=== PATIENT | male | born 1950 | race Caucasian/White ===

== ENCOUNTER 2017-04-13 06:50 | Inpatient (IN) | payer MEDICARE, MEDICAID ==
[~2017-04-13] VITALS: Ht 172.7 cm; Wt 64.4 kg
[2017-04-13] VITALS (10 sets, daily range): BP systolic 92–120; BP diastolic 46–66
[~2017-04-13 06:50] MED LIST: FURO-152; INSU10VI5; METF500T4; PROP120C2
[2017-04-13] MEDS ORDERED: ONDANSETRON HCL 4MG/2ML VIAL IV STA (07:11)
[2017-04-13 07:51] LABS: BASOPHILS % 0.4 % (0.0-2.0); EOSINOPHILS % 2.5 % (0.0-5.0); HEMATOCRIT. 44.2 % (42.0-52.0); HEMOGLOBIN. 15.5 g/dL (14.0-18.0); INR 1.3; LYMPHOCYTES % 19.6 % (20.0-50.0); MEAN CORPUSCULAR HEMOGLOBIN 31.8 pg (28.0-32.0); MEAN CORPUSCULAR HGB CONC 35.1 g/dL (31.0-37.0); MEAN CORPUSCULAR VOLUME 90.5 fL (80.0-94.0); MEAN PLATELET VOLUME 8.7 fl (7.4-10.4); MONOCYTES % 12.8 % (2.0-8.0); NEUTROPHILS % 64.7 % (40.0-76.0); PARTIAL THROMBOPLASTIN TIME 31.3 sec (24.0-34.0); PLATELET 112 x1000/uL (130-400); PROTHROMBIN TIME 13.4 sec; RED BLOOD CELL COUNT 4.89 mill/uL (4.7-6.1); RED CELL DISTRIBUTION WIDTH 15.8 % (11.6-14.6); WHITE BLOOD COUNT 6.2 x1000/uL (4.5-11.0)
[2017-04-13 07:52] LABS: AMMONIA 146 uMol/L (<32); INDEX HEMOLYSI 1 (1-3)
[2017-04-13 07:55] LABS: CALCIUM 9.1 mg/dL (8.5-10.1); CHLORIDE 91 mEq/L (98-107); INDEX HEMOLYSI 1 (1-3); INDEX ICTERIC 1 (1-4); INDEX LIPEMIC 1 (1-3)
[2017-04-13 07:59] LABS: ALANINE AMINOTRANSFERASE 67 IU/L (13-61); ANION GAP 19; CARBON DIOXIDE 24 mEq/L (21-32); UREA NITROGEN BLOOD 40 mg/dL (7-21)
[2017-04-13 08:03] LABS: ETHANOL BLOOD < 10 mg/dL; LIPASE 311 IU/L (73-393); NT PRO B-TYPE NATRIURETIC PEP 418 pg/mL (5-125); TROPONIN I 0.03 ng/mL (0.00-0.04); eGFR 32 mL/min (>60)
[2017-04-13 08:08] LABS: BG BASE EXCESS 0.9 mmol/L (-2.0-2.0); BG CARBOXYHEMOGLOBIN 0.5 % (0.5-1.5); BG DEOXYHEMOGLOBIN 2.5 % (0.0-5.0); BG FRACTION INSPIRED OXYGEN 21; BG HCO3 ACT 23.5 mmol/L (22.0-26.0); BG METHEMOGLOBIN 0.3 % (0.0-1.5); BG OXYGEN SATURATION 97.5 % (92.0-98.5); BG OXYHEMOGLOBIN 96.7 % (94.0-97.0); BG PCO2 32.3 mmHg (35.0-45.0); BG PO2 94.5 mmHg (75.0-100.0); BG SAMPLE SITE RIGHT RADIAL; BG TOTAL HEMOGLOBIN 16.2 g/dL (12.0-18.0); BG VENT MODE ROOM AIR
[2017-04-13] MEDS ORDERED: CEFTRIAXONE 1 G PREMIX 50 ML IV ONE (08:15)
[2017-04-13 08:16] LABS: LACTIC ACID 3.1 mmol/L (0.4-2.0)
[2017-04-13 08:34] LABS: CLARITY URINE CLEAR (CLEAR); COLOR URINE DARK YELLOW (YELLOW); GLUCOSE URINE NEGATIVE (NEGATIVE); KETONES URINE NEGATIVE (NEGATIVE); LEUKOCYTE ESTERASE URINE NEGATIVE (NEGATIVE); NITRITE URINE NEGATIVE (NEGATIVE); OCCULT BLOOD URINE 2+ (NEGATIVE); PROTEIN URINE NEGATIVE (NEGATIVE); SPECIFIC GRAVITY URINE 1.018 (1.005-1.030)
[2017-04-13 08:46] LABS: BACTERIA URINE NONE SEEN; SQUAMOUS EPITHELIAL CELL URINE 1+ /lpf (RARE/1+); WBC URINE 0-2 /hpf (0-2)
[2017-04-13 09:06] LABS: *AMPHETAMINES SCREEN URINE NEGATIVE (NEGATIVE); *BARBITURATES SCREEN URINE NEGATIVE (NEGATIVE); *BENZODIAZEPINES SCREEN URINE NEGATIVE (NEGATIVE); *COCAINE SCREEN URINE NEGATIVE (NEGATIVE); CANNABINOID URINE SCREEN NEGATIVE (NEGATIVE); ECSTASY MDMA SCREEN URINE NEGATIVE (NEGATIVE); METHADONE URINE SCREEN NEGATIVE (NEGATIVE); OPIATES URINE SCREEN NEGATIVE (NEGATIVE); PHENCYCLIDINE URINE SCREEN NEGATIVE (NEGATIVE)
[2017-04-13] MEDS ORDERED: IPRATROPIUM/ALBUTEROL 0.5-3(2.5)MG/3ML NEB INH PRN (11:45)
[2017-04-13] MEDS ORDERED: ACETAMINOPHEN 325MG TABLET PO PRN (11:45)
[2017-04-13] MEDS ORDERED: GUAIFENESIN 200MG/10ML SUGAR FREE UDC PO PRN (11:45)
[2017-04-13] MEDS ORDERED: NITROGLYCERIN 0.4MG TABLET SL SL PRN (11:45)
[2017-04-13] MEDS ORDERED: NA PHOS,M-B/NA PHOS,DI-BA ENEMA 118ML PR PRN (11:45)
[2017-04-13] MEDS ORDERED: CLONIDINE 0.1MG TABLET PO PRN (11:45)
[2017-04-13] MEDS ORDERED: ONDANSETRON HCL 4MG/2ML VIAL IV PRN (11:45)
[2017-04-13] MEDS ORDERED: MAGNESIUM/ALUMINUM HYDROXIDE/SIMETHICONE 30ML UDC PO PRN (11:45)
[2017-04-13] MEDS: METOPROLOL TARTRATE 25MG TABLET PO SCH ×2 (12:00→20:36)
[2017-04-13] MEDS: ENOXAPARIN 40MG/0.4ML SYR SUBCUT SCH (12:06)
[2017-04-13] MEDS: LACTULOSE 20G/30ML UDC PO SCH ×4 (12:06→23:40)
[2017-04-13] MEDS: PANTOPRAZOLE SODIUM 40 MG/VIAL IV SCH (12:06)
[2017-04-13 12:24] LABS: BODY FLUID WBC 290 /cu mm (0-200)
[2017-04-13] MEDS ORDERED: INSU3INS6 SUBCUT (12:51)
[2017-04-13] MEDS ORDERED: LACT10SO6 MT (12:51)
[2017-04-13] MEDS ORDERED: OMEP20CA10 PO (12:51)
[2017-04-13] MEDS ORDERED: TAMS0.4C31 PO (12:51)
[2017-04-13] MEDS ORDERED: FOLI-43 PO (12:51)
[2017-04-13] MEDS ORDERED: LOSA25TA12 PO (12:51)
[2017-04-13] MEDS ORDERED: GABA-531 PO (12:51)
[2017-04-13] MEDS ORDERED: SPIR100T24 PO (12:51)
[2017-04-13] MEDS ORDERED: LORA10TA7 PO (12:51)
[2017-04-13] MEDS ORDERED: FURO80TA87 PO (12:51)
[2017-04-13] MEDS ORDERED: ATOR20TA65 PO (12:51)
[2017-04-13] MEDS ORDERED: LEVOFLOXACIN 500MG PREMIX 100 ML IV SCH (13:00)
[2017-04-13] MEDS ORDERED: SODIUM BICARBONATE 4% (2.4MEQ) 5ML VIAL IV ONE (14:24)
[2017-04-13] MEDS ORDERED: LIDOCAINE HCL 1% 20ML VIAL (Pyxis) INJ ONE (14:24)
[2017-04-13 15:42] LABS: CREATINE KINASE MB FRACTION 2.7 ng/mL (0.5-3.6); TROPONIN I 0.03 ng/mL (0.00-0.04)
[2017-04-13] MEDS: ALBUMIN HUMAN 25GM/100ML (25%) IV SCH ×2 (16:18→22:04)
[2017-04-13 23:11] LABS: CREATINE KINASE MB FRACTION 3.4 ng/mL (0.5-3.6); TROPONIN I 0.05 ng/mL (0.00-0.04)
[2017-04-14] VITALS (10 sets, daily range): BP systolic 96–119; BP diastolic 61–95
[2017-04-14] MEDS: LACTULOSE 20G/30ML UDC PO SCH ×5 (04:42→20:10)
[2017-04-14 06:15] LABS: BASOPHILS % 0.4 % (0.0-2.0); EOSINOPHILS % 2.4 % (0.0-5.0); HEMATOCRIT. 37.3 % (42.0-52.0); HEMOGLOBIN. 12.9 g/dL (14.0-18.0); LYMPHOCYTES % 11.1 % (20.0-50.0); MEAN CORPUSCULAR HEMOGLOBIN 31.4 pg (28.0-32.0); MEAN CORPUSCULAR HGB CONC 34.7 g/dL (31.0-37.0); MEAN CORPUSCULAR VOLUME 90.4 fL (80.0-94.0); MEAN PLATELET VOLUME 9.1 fl (7.4-10.4); MONOCYTES % 13.2 % (2.0-8.0); NEUTROPHILS % 72.9 % (40.0-76.0); PLATELET 85 x1000/uL (130-400); RED BLOOD CELL COUNT 4.12 mill/uL (4.7-6.1); RED CELL DISTRIBUTION WIDTH 15.4 % (11.6-14.6); WHITE BLOOD COUNT 4.6 x1000/uL (4.5-11.0)
[2017-04-14] MEDS: ALBUMIN HUMAN 25GM/100ML (25%) IV SCH (06:16)
[2017-04-14 07:22] LABS: ALANINE AMINOTRANSFERASE 52 IU/L (13-61); ALBUMIN 3.5 g/dL (3.4-5.0); ANION GAP 18; CALCIUM 9.5 mg/dL (8.5-10.1); CARBON DIOXIDE 20 mEq/L (21-32); CHLORIDE 97 mEq/L (98-107); INDEX HEMOLYSI 2 (1-3); INDEX ICTERIC 2 (1-4); INDEX LIPEMIC 1 (1-3); UREA NITROGEN BLOOD 46 mg/dL (7-21); eGFR 32 mL/min (>60)
[2017-04-14] MEDS: METOPROLOL TARTRATE 25MG TABLET PO SCH ×2 (09:00→21:00)
[2017-04-14] MEDS: PANTOPRAZOLE SODIUM 40 MG/VIAL IV SCH (09:02)
[2017-04-14] MEDS: ENOXAPARIN 40MG/0.4ML SYR SUBCUT SCH (09:04)
[2017-04-14] MEDS: CEFTRIAXONE 1 G PREMIX 50 ML IV SCH (10:03)
[2017-04-14] MEDS: LEVOFLOXACIN 250MG PREMIX 50 ML IV SCH (12:58)
[2017-04-14] MEDS: RIFAXIMIN 550 MG TABLET PO SCH ×2 (12:58→20:58)
[2017-04-14] MEDS ORDERED: DEXTROSE 50% WATER 50ML SYRINGE IV PRN (18:15)
[2017-04-14] MEDS: INSULIN LISPRO 100 UNITS/ML SUBCUT SCH (21:00)
[2017-04-14] MEDS: BLOOD SUGAR DIAGNOSTIC STRIP TEST SCH (21:00)
[2017-04-15] VITALS (12 sets, daily range): BP systolic 89–108; BP diastolic 59–73
[2017-04-15] MEDS: LACTULOSE 20G/30ML UDC PO SCH ×6 (01:12→20:20)
[2017-04-15 06:41] LABS: HEMATOCRIT 39.7 % (42.0-52.0); HEMOGLOBIN 13.7 g/dL (14.0-18.0); MEAN CORPUSCULAR HEMOGLOBIN 31.5 pg (28.0-32.0); MEAN CORPUSCULAR HGB CONC 34.5 g/dL (31.0-37.0); MEAN CORPUSCULAR VOLUME 91.1 fL (80.0-94.0); PLATELET 76 x1000/uL (130-400); RED BLOOD CELL COUNT 4.36 mill/uL (4.7-6.1); WHITE BLOOD COUNT 3.5 x1000/uL (4.5-11.0)
[2017-04-15] MEDS: BLOOD SUGAR DIAGNOSTIC STRIP TEST SCH ×4 (07:30→20:25)
[2017-04-15] MEDS: CEFTRIAXONE 1 G PREMIX 50 ML IV SCH (08:54)
[2017-04-15] MEDS: FAMOTIDINE 20MG TABLET PO SCH (08:54)
[2017-04-15] MEDS: RIFAXIMIN 550 MG TABLET PO SCH ×2 (08:54→20:21)
[2017-04-15] MEDS: METOPROLOL TARTRATE 25MG TABLET PO SCH ×2 (09:00→20:21)
[2017-04-15] MEDS: INSULIN LISPRO 100 UNITS/ML SUBCUT SCH ×4 (09:03→20:24)
[2017-04-15 11:51] LABS: ALANINE AMINOTRANSFERASE 50 IU/L (13-61); ALBUMIN 3.5 g/dL (3.4-5.0); ANION GAP 14; CALCIUM 8.9 mg/dL (8.5-10.1); CARBON DIOXIDE 22 mEq/L (21-32); CHLORIDE 102 mEq/L (98-107); INDEX HEMOLYSI 2 (1-3); INDEX ICTERIC 1 (1-4); INDEX LIPEMIC 1 (1-3); UREA NITROGEN BLOOD 41 mg/dL (7-21); eGFR 38 mL/min (>60)
[2017-04-15] MEDS: LEVOFLOXACIN 250MG PREMIX 50 ML IV SCH (11:55)
[2017-04-16] VITALS (12 sets, daily range): BP systolic 86–99; BP diastolic 60–71
[2017-04-16] MEDS: BLOOD SUGAR DIAGNOSTIC STRIP TEST SCH ×4 (07:30→21:11)
[2017-04-16] MEDS: RIFAXIMIN 550 MG TABLET PO SCH ×2 (08:54→21:00)
[2017-04-16] MEDS: FAMOTIDINE 20MG TABLET PO SCH (08:54)
[2017-04-16] MEDS: LACTULOSE 20G/30ML UDC PO SCH ×2 (08:54→21:00)
[2017-04-16] MEDS: CEFTRIAXONE 1 G PREMIX 50 ML IV SCH (08:56)
[2017-04-16] MEDS: METOPROLOL TARTRATE 25MG TABLET PO SCH ×2 (08:58→21:00)
[2017-04-16] MEDS: INSULIN LISPRO 100 UNITS/ML SUBCUT SCH ×4 (09:47→21:10)
[2017-04-16 11:26] LABS: BASOPHILS % 0.3 % (0.0-2.0); EOSINOPHILS % 3.2 % (0.0-5.0); HEMOGLOBIN. 13.8 g/dL (14.0-18.0); LYMPHOCYTES % 11.5 % (20.0-50.0); MEAN CORPUSCULAR HEMOGLOBIN 31.4 pg (28.0-32.0); MEAN CORPUSCULAR HGB CONC 34.4 g/dL (31.0-37.0); MEAN CORPUSCULAR VOLUME 91.2 fL (80.0-94.0); MEAN PLATELET VOLUME 8.8 fl (7.4-10.4); MONOCYTES % 10.4 % (2.0-8.0); NEUTROPHILS % 74.6 % (40.0-76.0); PLATELET 85 x1000/uL (130-400); RED BLOOD CELL COUNT 4.39 mill/uL (4.7-6.1); RED CELL DISTRIBUTION WIDTH 15.5 % (11.6-14.6); WHITE BLOOD COUNT 4.3 x1000/uL (4.5-11.0)
[2017-04-16 11:59] LABS: ALANINE AMINOTRANSFERASE 70 IU/L (13-61); ALBUMIN 3.2 g/dL (3.4-5.0); ANION GAP 13; CALCIUM 8.3 mg/dL (8.5-10.1); CARBON DIOXIDE 22 mEq/L (21-32); CHLORIDE 97 mEq/L (98-107); INDEX HEMOLYSI 2 (1-3); INDEX ICTERIC 1 (1-4); INDEX LIPEMIC 1 (1-3); UREA NITROGEN BLOOD 38 mg/dL (7-21); eGFR 47 mL/min (>60)
[2017-04-16] MEDS: LEVOFLOXACIN 250MG PREMIX 50 ML IV SCH (13:29)
[2017-04-17] VITALS (9 sets, daily range): BP systolic 91–117; BP diastolic 55–70
[2017-04-17] MEDS: INSULIN LISPRO 100 UNITS/ML SUBCUT SCH ×2 (08:00→12:14)
[2017-04-17] MEDS: BLOOD SUGAR DIAGNOSTIC STRIP TEST SCH ×2 (08:16→11:54)
[2017-04-17] MEDS: METOPROLOL TARTRATE 25MG TABLET PO SCH (08:17)
[2017-04-17] MEDS: FAMOTIDINE 20MG TABLET PO SCH (09:02)
[2017-04-17] MEDS: LACTULOSE 20G/30ML UDC PO SCH (09:02)
[2017-04-17] MEDS: RIFAXIMIN 550 MG TABLET PO SCH (09:26)
[2017-04-17] MEDS: CEFTRIAXONE 1 G PREMIX 50 ML IV SCH (09:26)
[2017-04-17] MEDS ORDERED: LEVOFLOXACIN 250MG TABLET PO SCH (11:00)
== END 2017-04-17 12:55 | disposition home or self-care (01) | DRG 871 ==
LOC: ER 07:06 → 5EST 08:07
PROVIDERS: ADMIT Internal Medicine; ATTEND Internal Medicine
PROC: 0W9G3ZX Drainage of Peritoneal Cavity, Percutaneous Approach, Diagnostic (ICD-10-PCS; principal; 2017-04-13)
DX: A41.9 Sepsis, unspecified organism (principal); K72.00 Acute and subacute hepatic failure without coma; G92 Toxic encephalopathy; K65.2 Spontaneous bacterial peritonitis; N17.0 Acute kidney failure with tubular necrosis; K76.7 Hepatorenal syndrome; E44.0 Moderate protein-calorie malnutrition; R18.8 Other ascites; N18.4 Chronic kidney disease, stage 4 (severe); I13.0 Hypertensive heart and chronic kidney disease with heart failure and stage 1 through stage 4 chronic kidney disease, or unspecified chronic kidney disease; E87.1 Hypo-osmolality and hyponatremia; I50.9 Heart failure, unspecified; E11.22 Type 2 diabetes mellitus with diabetic chronic kidney disease; K74.60 Unspecified cirrhosis of liver; N40.0 Benign prostatic hyperplasia without lower urinary tract symptoms; D63.8 Anemia in other chronic diseases classified elsewhere; E87.5 Hyperkalemia; Z68.21 Body mass index [BMI] 21.0-21.9, adult; Z79.4 Long term (current) use of insulin; Z79.899 Other long term (current) drug therapy
CPT/HCPCS: 36415; 36600; 49083; 51702; 70450; 71010; 80053; 80305; 81001; 82140; 82375; 82550; 82553; 82805; 82962; 83036; 83605; 83690; 83880; 84484; 85025; 85027; 85610; 85730; 86850; 86900; 87040; 87070; 87086; 87205; 88108; 88312; 89050; 92610; 93005; 93970; 96365; 96375; 97116; 97162; 97166; 97535; 99291; A6261; C9113; G0482; J0696; J1650; J1815; J1956; J2405; J3490; J7050; P9047; A4315

== ENCOUNTER 2017-08-11 07:15 | Emergency (ER) | payer MEDICARE, MEDICAID ==
[~2017-08-11] VITALS: Ht 162.6 cm; Wt 74.0 kg
[~2017-08-11 07:15] MED LIST changes: +ATOR20TA65 PO; +FOLI-43 PO; -FURO-152; +FURO80TA87 PO; +GABA-531 PO; +INSU3INS6 SUBCUT; +LACT10SO6 MT; +LORA10TA7 PO; +LOSA25TA12 PO; +OMEP20CA10 PO; +SPIR100T24 PO; +TAMS0.4C31 PO
[2017-08-11 08:27] LABS: HEMATOCRIT. 39.5 % (42.0-52.0); HEMOGLOBIN. 13.6 g/dL (14.0-18.0); MEAN CORPUSCULAR HEMOGLOBIN 32.6 pg (28.0-32.0); MEAN CORPUSCULAR VOLUME 94.9 fL (80.0-94.0); MEAN PLATELET VOLUME 8.8 fl (7.4-10.4); PLATELET 122 x1000/uL (130-400); RED BLOOD CELL COUNT 4.17 mill/uL (4.7-6.1); RED CELL DISTRIBUTION WIDTH 16.6 % (11.6-14.6)
[2017-08-11 08:32] LABS: CHLORIDE 98 mEq/L (98-107)
[2017-08-11 08:33] LABS: INR 1.7; PROTHROMBIN TIME 17.8 sec (9.4-11.6)
[2017-08-11 08:41] LABS: CARBON DIOXIDE 15 mEq/L (21-32); TROPONIN I 0.02 ng/mL (0.00-0.04)
[2017-08-11 09:21] LABS: PLATELET ESTIMATE NORMAL
[2017-08-11] MEDS ORDERED: ONDANSETRON HCL 4MG/2ML VIAL IV PRN (10:30)
[2017-08-11] MEDS ORDERED: MORPHINE SULFATE 4 MG/ML CPJ (NOT FOR IM USE) IV PRN (10:30)
[2017-08-11 10:49] LABS: *AMPHETAMINES SCREEN URINE NEGATIVE (NEGATIVE); *BARBITURATES SCREEN URINE NEGATIVE (NEGATIVE); *BENZODIAZEPINES SCREEN URINE NEGATIVE (NEGATIVE); *COCAINE SCREEN URINE NEGATIVE (NEGATIVE); CANNABINOID URINE SCREEN NEGATIVE (NEGATIVE); METHADONE URINE SCREEN NEGATIVE (NEGATIVE); OPIATES URINE SCREEN NEGATIVE (NEGATIVE); PHENCYCLIDINE URINE SCREEN NEGATIVE (NEGATIVE)
[2017-08-11] MEDS ORDERED: MORPHINE SULFATE 1MG/ML 1ML INJ SYR(NEO) IV ONE (12:15)
[2017-08-11 12:57] VITALS: BP 77/53
== END 2017-08-11 12:58 | disposition home or self-care (01) ==
LOC: ER 07:15
DX: C16.9 Malignant neoplasm of stomach, unspecified (principal); R11.0 Nausea; R63.0 Anorexia; Z68.28 Body mass index [BMI] 28.0-28.9, adult; I13.0 Hypertensive heart and chronic kidney disease with heart failure and stage 1 through stage 4 chronic kidney disease, or unspecified chronic kidney disease; I50.9 Heart failure, unspecified; N18.9 Chronic kidney disease, unspecified; E11.22 Type 2 diabetes mellitus with diabetic chronic kidney disease; D63.8 Anemia in other chronic diseases classified elsewhere; Z79.4 Long term (current) use of insulin; Z93.3 Colostomy status; F10.10 Alcohol abuse, uncomplicated; Y90.9 Presence of alcohol in blood, level not specified; Z79.899 Other long term (current) drug therapy; Z79.84 Long term (current) use of oral hypoglycemic drugs; J44.9 Chronic obstructive pulmonary disease, unspecified
CPT/HCPCS: 36415; 71010; 80053; 80305; 83880; 84484; 85025; 85610; 93005; 96374; 96375; 99285; J2270; J2405